=== PATIENT | female | born 1930 | race Two or more races ===

== ENCOUNTER 2019-09-19 17:19 | Emergency (ER) | payer OTHER ==
[~2019-09-19] VITALS: Ht 157.5 cm; Wt 88.5 kg
[2019-09-19 17:50] VITALS: BP_SYST 153
[2019-09-19] MEDS ORDERED: traMADol HCL HCL 50 MG TABLET (ULTRAM) PO ONE (18:00)
[2019-09-19 19:14] VITALS: BP_SYST 146
== END 2019-09-19 19:14 | disposition home or self-care (01) ==
LOC: SED 17:19
DX: M25.551 Pain in right hip (principal); I10 Essential (primary) hypertension
CPT/HCPCS: 73521; 99283